=== PATIENT | male | born 1970 | race Caucasian/White ===

== ENCOUNTER 2017-05-01 08:07 | Emergency (ER) | payer BC | END 2017-05-01 09:00 | disposition home or self-care (01) | LOC: NAV ERS 08:07 | DX: K45.8 Other specified abdominal hernia without obstruction or gangrene (principal); E78.5 Hyperlipidemia, unspecified; I10 Essential (primary) hypertension; F17.210 Nicotine dependence, cigarettes, uncomplicated; Z79.899 Other long term (current) drug therapy | CPT/HCPCS: 99283 ==